=== PATIENT | male | born 1955 | race Caucasian/White ===

== ENCOUNTER 2018-07-14 12:02 | Day surgery (SDC) | payer BC ==
[2018-07-13 08:56] VITALS: BMI 26.2
[~2018-07-14 12:02] MED LIST: LACTATED RINGERS 1,000 ML IV SCH; LIDOCAINE 1% 20 ML VIAL (10MG/ML) FOR IV START INTRADERMA PRN
[2018-07-14 12:34] VITALS: TEMP 98.3
[2018-07-14] MEDS ORDERED: LIDOCAINE 1% INJ 10MG/ML (20 ML MDV) ONE (12:53)
[2018-07-14] MEDS ORDERED: PROPOFOL 10 MG/ML 20 ML VIAL IV ONE (12:53)
--- NOTE | 2018-07-14 13:10 | P.OP ---
Date of Procedure: 07/14/18 Preoperative Diagnosis: Screening Postoperative Diagnosis: Diverticulosis Procedure(s) Performed: Colonoscopy Surgeon: Johny Melara Pathology: none sent Condition: stable Disposition: same day Indications for Procedure: 62-year-old male presents for screening colonoscopy. Risks, benefits and alternatives were provided to the patient. The patient did provide consent prior to attending the endoscopy suite. Operative Findings: Diverticulosis of the colon Description of Procedure: The patient was brought into the endoscopy suite and placed in left lateral decubitus position and adequate sedation was achieved using conscious sedation. A digital rectal exam was performed and internal hemorrhoids were palpated. An endoscope was then placed in the rectum and advanced to the cecum as identified by landmarks including the appendiceal orifice and the ileocecal valve. The prep was good. The colonoscope was slowly withdrawn, examining for any mucosal antibiotics. The cecum, ascending, transverse, descending and sigmoid colon were visualized adequately. There was notable diverticulosis scattered throughout the colon. There were no obvious inflammatory changes or polypoid lesions colon. There was no obvious source of bleeding. Retroflexion was performed in the rectum and internal hemorrhoids were visible. Excess air was removed, the colonoscope was withdrawn and the procedure terminated. The patient was then transferred to postanesthesia care unit in stable condition. Repeat colonoscopy should be performed in 10 years.
[2018-07-14 13:34] VITALS: BP 125/74; PULSE 84; RESP 18
== END 2018-07-14 14:38 | disposition home or self-care (01) ==
LOC: ORWHC2ENDO 12:02
PROVIDERS: ATTEND Surgery
DX: Z12.11 Encounter for screening for malignant neoplasm of colon (principal); K57.30 Diverticulosis of large intestine without perforation or abscess without bleeding; K64.8 Other hemorrhoids; I10 Essential (primary) hypertension; Z79.899 Other long term (current) drug therapy
CPT/HCPCS: J2001; J2704; G0121; 45378

== ENCOUNTER 2023-04-29 19:47 | Emergency (ER) | payer BC, MEDICARE ==
[2023-04-29] MEDS ORDERED: LIDOCAINE 1% INJ 10MG/ML (20 ML MDV) SQ ONE (20:59)
[2023-04-29] MEDS ORDERED: DIPH,PERTUS(ACELL)TETVAC-LF 0.5 ML VIAL IM ONE (20:59)
--- NOTE | 2023-04-29 21:09 | XR ---
PROCEDURE: XR hand complete LT - 3V DATE AND TIME: 04/29/2023 8:29 PM CLINICAL INDICATION: PHH; laceration left thumb, chain saw TECHNIQUE: Department protocol COMPARISON: None FINDINGS / IMPRESSION: There is prominent soft tissue swelling of the thumb, and the IP joint appears distracted/disrupted o n its volar aspect.
[2023-04-29] MEDS ORDERED: HYDROmorphone 1 MG/ML 1 ML SYRINGE IM STA (21:54)
[2023-04-29 22:28] VITALS: RESP 18
[2023-04-29] MEDS ORDERED: CEPHALEXIN 500 MG CAP PO STA (22:49)
[2023-04-29] MEDS ORDERED: CEPHALEXIN 500MG STARTER PACK 4 CAP BTL PO STA (23:00)
--- NOTE | 2023-04-29 23:25 | ED ---
General Adult HPI - General Chief complaint: Wound/Laceration Stated complaint: Finger injury Time Seen by Provider: 04/29/23 20:25 Source: patient, RN notes reviewed Mode of arrival: ambulatory Limitations: no limitations - History of Present Illness Initial comments: 67-year-old presents to the emergency department with chief complaint of left thumb injury. He states that he was working with a table saw just prior to arrival when his thumb went into the saw. He reports limited range of motion to the tip of his thumb. He reports appropriate sensation. He is unsure of the date of his last tetanus vaccination. - Related Data Home Medications Medication Instructions Recorded Confirmed Losartan [Cozaar] 25 mg PO DAILY 12/29/15 07/14/18 amLODIPine [Norvasc] 5 mg PO DAILY 07/14/18 07/14/18 Previous Rx's Medication Instructions Recorded Cephalexin [Keflex] 500 mg PO Q6HR #28 cap 04/29/23 Allergies Allergy/AdvReac Type Severity Reaction Status Date / Time No Known Allergies Allergy Verified 04/29/23 20:14 Review of Systems ROS Statement: Those systems with pertinent positive or pertinent negative responses have been documented in the HPI. ROS Other: All systems not noted in ROS Statement are negative. Past Medical History Past Medical History: Hypertension, Thyroid Disorder Additional Past Medical History / Comment(s): graves disease History of Any Multi-Drug Resistant Organisms: None Reported Past Surgical History: No Surgical Hx Reported Additional Past Surgical History / Comment(s): colonoscopy Past Anesthesia/Blood Transfusion Reactions: No Reported Reaction Past Psychological History: No Psychological Hx Reported Smoking Status: Never smoker Past Alcohol Use History: None Reported Past Drug Use History: None Reported - Past Family History Mother Family Medical History: No Reported History General Exam Limitations: no limitations General appearance: alert, in no apparent distress Respiratory exam: Absent: respiratory distress Extremities exam: Present: tenderness, normal capillary refill, other (Radial pulses 2+, sensation intact). Absent: full ROM (No flexion of the DIP of the left first digit.) Neurological exam: Present: alert, oriented X3 Psychiatric exam: Present: normal affect, normal mood Skin exam: Present: warm, dry, other (Flap laceration to the first digit of the left hand around 4 cm). Absent: intact Course Vital Signs 04/29/23 04/29/23 20:15 22:10 Temperature 98.5 F Pulse Rate 58 L 65 Respiratory 20 18 Rate Blood Pressure 176/83 177/86 O2 Sat by Pulse 97 98 Oximetry Procedures - Laceration Laceration #1 Consent Obtained: verbal consent Indication: laceration Site: hand Size (cm): 4 Description: flap Anesthetic Used: lidocaine 1% Anesthesia Technique: nerve block Pre-repair: wound explored, irrigated extensively (1 L ns) Type of Sutures: other Size of Sutures: 4-0 Technique: simple, interrupted Patient Tolerated Procedure: well, no complications Medical Decision Making - Medical Decision Making Was pt. sent in by a medical professional or institution (, PA, VARNISH MELTER, urgent care, hospital, or long term...) When possible be specific @ -No Did you speak to anyone other than the patient for history (EMS, parent, family, police, friend...)? What history was obtained from this source @ -No Did you review nursing and triage notes (agree or disagree)? Why? @ -I reviewed and agree with nursing and triage notes Were old charts reviewed (outside hosp., previous admission, EMS record, old EKG, old radiological studies, urgent care reports/EKG's, long term records)? Report findings @ -No old charts were reviewed Differential Diagnosis (chest pain, altered mental status, abdominal pain women, abdominal pain men, vaginal bleeding, weakness, fever, dyspnea, syncope, headache, dizziness, GI bleed, back pain, seizure, CVA, palpatations, mental health, musculoskeletal)? @ -Differential Musculoskeletal Muscular strain, contusion, ligament sprain, fracture, arthritis, septic arthritis, bursitis, cellulitis, muscle spasm, nerve compression, DVT, arterial occlusion, herpes zoster, electrolyte abnormality, tumor.... This is not meant to be in all inclusive list EKG interpreted by me (3pts min.). @ -None X-rays interpreted by me (1pt min.). @ -X-ray left hand shows soft tissue swelling of the thumb, IP joint appears distracted/disrupted on the volar aspect CT interpreted by me (1pt min.). @ -None done U/S interpreted by me (1pt. min.). @ -None done What testing was considered but not performed or refused? (CT, X-rays, U/S, labs)? Why? @ -None What meds were considered but not given or refused? Why? @ -None Did you discuss the management of the patient with other professionals (professionals i.e. , ALFONZO, VARNISH MELTER, lab, RT, psych nurse, social and human services assistant, gun repair clerk, teacher, health promotion officer, disability case manager)? Give summary @ -Case discussed with Dr. Moreno. Patient will be discharged home on Keflex and follow-up with Dr. Latif in the office tomorrow Was smoking cessation discussed for >3mins.? @ -No Was critical care preformed (if so, how long)? @ -No Were there social determinants of health that impacted care today? How? (Homelessness, low income, unemployed, alcoholism, drug addiction, transportation, low edu. Level, literacy, decrease access to med. care, skilled nursing, rehab)? @ -No Was there de-escalation of care discussed even if they declined (Discuss DNR or withdrawal of care, Hospice)? DNR status @ -No What co-morbidities impacted this encounter? (DM, HTN, Smoking, COPD, CAD, Cancer, CVA, ARF, Chemo, Hep., AIDS, mental health diagnosis, sleep apnea, morbid obesity)? @ -None Was patient admitted / discharged? Hospital course, mention meds given and route, prescriptions, significant lab abnormalities, going to OR and other pertinent info. @ -discharged. Patient presented to the emergency department for chief complaint of left thumb injury. NVI. X-ray obtained which shows soft tissue swelling of the thumb, IP joint appears distracted/disrupted on the volar aspect. Flap laceration present. Wound was irrigated with 1 L normal saline and loosely approximated. Patient given dose of Keflex and prescription for p rophylaxis. Patient up-to-date on his tetanus vaccination. There is concern for tendon injury because of lack of ROM at DIP, although tendon not visualized. Case is discussed with Dr. Moreno who recommends follow up with Dr. Latif in the next 1-2 days with prophylactic antibiotics. Patient will also be placed in a thumb spica splint. Patient discharged with strict follow up to orthopedics. Patient agreeable and understanding. Patient stable at time of discharge, Case discussed with Dr. Nur Undiagnosed new problem with uncertain prognosis? @ -No Drug Therapy requiring intensive monitoring for toxicity (Heparin, Nitro, Insulin, Cardizem)? @ -No Were any procedures done? @ -No Diagnosis/symptom? @ -laceration, left thumb IP joint disruption Acute, or Chronic, or Acute on Chronic? @ -acute Uncomplicated (without systemic symptoms) or Complicated (systemic symptoms)? @ -uncomplicated Side effects of treatment? @ -No Exacerbation, Progression, or Severe Exacerbation? @ -No Poses a threat to life or bodily function? How? (Chest pain, [place], [place], pneumonia, PE, COPD, DKA, ARF, appy, cholecystitis, CVA, Diverticulitis, Homicidal, Suicidal, threat to staff... and all critical care pts) @ -No Disposition Clinical Impression: Laceration Disposition: HOME SELF-CARE Condition: Stable Instructions (If sedation given, give patient instructions): Care For Your Stitches (ED), Laceration (ED) Additional Instructions: Please follow up with orthopedics in the office tomorrow. Return to the emergen cy department for new or worsening symptoms. Prescriptions: Cephalexin [Keflex] 500 mg PO Q6HR #28 cap Is patient prescribed a controlled substance at d/c from ED?: Yes Referrals: Clarke Sanon [Primary Care Provider] - 1-2 days Gopal Moreno DO [Doctor of Osteopathic Medicine] - 1-2 days Radha Latif DO [Doctor of Osteopathic Medicine] - 1-2 days
[2023-04-30 00:12] VITALS: BP 159/89; PULSE 78; TEMP 98.1
== END 2023-04-29 23:59 | disposition home or self-care (01) ==
LOC: EC 19:47
DX: S61.012A Laceration without foreign body of left thumb without damage to nail, initial encounter (principal); I10 Essential (primary) hypertension; Z79.899 Other long term (current) drug therapy; Z23 Encounter for immunization; W31.2XXA Contact with powered woodworking and forming machines, initial encounter
CPT/HCPCS: 73130; 90715; 99283; 90471; 96372; 12002; J2001; J1170

== ENCOUNTER → 2024-03-03 | Outpatient (CLI) | payer BC, MEDICARE ==
--- NOTE | 2024-03-03 18:15 | XR ---
EXAMINATION TYPE: XR cervical spine comp DATE OF EXAM: 03/03/2024 COMPARISON: None HISTORY: 68-year-old male recurrent headache, [id number], stiff neck TECHNIQUE: 7 views FINDINGS: Moderate to severe uncovertebral joint arthropathy mid to lower cervical spine. Alignment is maintain ed. No prevertebral soft tissue swelling. No predental space widening. On the right, changes result in mild bony neuroforaminal narrowing at C4-C5 and mild to moderate at C 5-C6. On the left, changes result in severe bony neural foraminal narrowing at C6-C7 and mild to moderate C 5-C6. Moderate disc/endplate degenerative change C4-C6 levels. Normal odontoid view. IMPRESSION: 1. Moderate spondylotic changes especially C4-C6 levels. 2. Changes result in severe left neural foraminal stenosis at C6-C7 and mild to moderate on both cindy es at C5-C6. 3. No malalignment.
== END | disposition home or self-care (01) ==
LOC: RADXRMAIN 13:28
PROVIDERS: ATTEND Family Medicine
DX: R51.9 Headache, unspecified
CPT/HCPCS: 72050

== ENCOUNTER → 2024-09-22 | Outpatient (CLI) | payer BC, MEDICARE ==
[2024-09-22 16:59] LABS: C Reactive Protein <0.30 mg/dL (0.00-0.80); T4, Free (Free Thyroxine) 1.22 ng/dL (0.80-1.80)
== END | disposition home or self-care (01) ==
LOC: LABWHC1 10:35
PROVIDERS: ATTEND Psychiatry & Neurology Neurology
DX: R41.9 Unspecified symptoms and signs involving cognitive functions and awareness (principal); R51.9 Headache, unspecified; R41.3 Other amnesia; R53.83 Other fatigue
CPT/HCPCS: 36415; 82306; 82607; 82746; 83036; 84207; 84439; 84443; 85652; 85730; 86038; 86140; 86618

== ENCOUNTER → 2024-10-13 | Outpatient (CLI) | payer BC, MEDICARE ==
--- NOTE | 2024-10-13 13:00 | XR ---
EXAMINATION TYPE: XR sinus INDICATION: Patient age:Male; 69 years old; Reason for study: J32.0 CHRONIC MAXILLARY SINUSITIS; PHH. pain COMPARISON: None TECHNIQUE: The sinuses were evaluated in 4 views. FINDINGS: The anterior nasal spine has a normal radiographic appearance as well. Slight nasal septal deviation to the left. The paranasal sinuses demonstrates normal aeration. IMPRESSION: No significant opacification of the sinuses. Consider CT maxillofacial if clinically warranted. [facility], , 10/13/2024 12:58 PM
== END | disposition home or self-care (01) ==
LOC: RADXRMAIN 12:09
PROVIDERS: ATTEND Family Medicine
DX: J32.1 Chronic frontal sinusitis (principal)
CPT/HCPCS: 70220